=== PATIENT | male | born 1985 | race Caucasian/White ===

== ENCOUNTER 2017-09-03 22:24 | Emergency (ER) | payer BC, OTHER ==
[~2017-09-03] VITALS: Ht 182.9 cm; Wt 107.6 kg
[2017-09-03 22:40] VITALS: TEMP 37.1; Ht 182.9 cm; Wt 107.6 kg
--- NOTE | 2017-09-03 22:56 | EMERGENCY ROOM VISIT NOTE ---
History First contact with patient: 22:46 Chief Complaint: LACERATION/CUT (NON-SUTURE) Stated Complaint: LEFT PINKY CUT TO THE BONE Nursing Triage Summary: pt states he cut his right 5th finger at a concert tonight. states "i thought it was dislocated so i grabbed it and like put it back in." cut noted to middle of right hand, 5th finger, swelling and deformity noted as well. bleeding controlled with 4x4 gauze. pt alert and oriented x4. History of Present Illness The patient is a 32 year old male who presents to the Emergency Room with complaints of a laceration to the right fifth finger. The patient reports that he was at a concert and in a mosh pit and his pinky was bent backward, causing a laceration. He states that the bone was sticking out of the skin. He states that he thought it was dislocated and pulled on the finger. He rates his current discomfort a 2/10. He states his tetanus status is up-to-date. He denies any numbness or weakness. Review of Systems A 6 point review of systems was reviewed with the patient with pertinent positives and negatives as per history of present illness. All else were negative. Social History Smoking Status: Never Smoker Current/Historical Medications Scheduled Cephalexin Monohydrate (Keflex), 500 MG PO QID Physical Exam Vital Signs Date Time Temp Pulse Resp B/P (MAP) Pulse Ox O2 Delivery O2 Flow Rate FiO2 09/04/17 00:40 94 18 162/89 99 09/03/17 22:40 37.1 117 16 155/116 96 Room Air Physical Exam VITALS: Vitals are noted on the nurse's note and reviewed by myself. Vital signs stable. GENERAL: This is a 32-year-old male, in no acute distress, nondiaphoretic, well- developed well-nourished. MUSCULOSKELETAL: There is obvious deformity of the right fifth finger. There is a laceration over the palmar aspect of the PIP. There is no active bleeding. Distal sensation intact. Decreased range of motion of the finger. NEURO: Patient was alert and oriented to person place and time. Medical Decision & Procedures ER Provider Diagnostic Interpretation: RIGHT FIFTH FINGER: Dorsal dislocation at the PIP joint. RIGHT FIFTH FINGER (POST-REDUCTION): Interval reduction of the joint dislocation. No fractures. Medications Administered Medications (Trade) Dose Ordered Sig/Ana Route Start Time Stop Time Status Last Admin Dose Admin Lidocaine HCl (Buffered Lidocaine 1% Inj) 20 ml ONE ONCE INFIL 09/03/17 23:00 09/03/17 23:01 DC 09/03/17 23:15 20 ML Bupivacaine HCl (Marcaine 0.5% MPF Inj) 30 ml NOW ONCE INFIL 09/03/17 23:00 09/03/17 23:01 DC 09/03/17 23:15 30 ML Cefazolin Sodium (Cefazolin 1000mg Iv Push) 1,000 mg STK-MED ONCE IV 09/03/17 23:46 09/03/17 23:47 DC 09/03/17 23:47 1,000 MG Procedure Verbal consent was obtained to perform the procedure. Using sterile technique the finger was cleansed with Betadine. 6 ml of a 2:1 solution of 1% buffered lidocaine and bupivacaine was used to perform a digital block to anesthetize the patient. The area was sterilely draped. Once the patient was anesthetized , the wound was copiously irrigated under pressure with sterile saline. Traction was applied to the distal phalanx and the dislocation was reduced. The wound was explored and there were no deep structures injured. The laceration was copiously irrigated with sterile saline. The laceration was repaired using 5 simple interrupted 4-0 nylon sutures. The patient tolerated the procedure well. Hemostasis was achieved. The area was cleaned with sterile saline and dressed with bacitracin ointment and bandage. Medical Decision Differential diagnosis includes open fracture, open dislocation, among others. The patient was evaluate as above. He presents with an injury to the right fifth finger. X-ray shows a dorsal dislocation of the finger. Reduction and laceration repair were performed as noted above. Patient was given 1 g Ancef IV. Orthopedics was consulted. Dr. Maguire will see the patient tomorrow in the office. Patient was placed on Keflex. He was placed in a metal finger splint. He verbalized understanding of my assessment and treatment plan and was discharged home in good condition. Medication Reconcilliation Current Medication List: was personally reviewed by me Blood Pressure Screening Patient's blood pressure: Elevated blood pressure Blood pressure disposition: Elevated BP felt to be situational Impression Primary Impression: Open dislocation of finger Departure Information Dispostion Home / Self-Care Condition GOOD Prescriptions Cephalexin Monohydrate (Keflex) 500 Mg Cap 500 MG PO QID for 7 Days, #28 CAP Prov: Bev Watson ., COLBY 09/04/17 Referrals Gianfranco Maguire MD Patient Instructions My [facility] Additional Instructions You were prescribed Keflex to be taken as prescribed. This is an antibiotic. All antibiotics have the potential to cause diarrhea. Stop this medication and contact a medical provider if you were to develop any significant adverse side effects including: wheezing, shortness of breath, passing out, vomiting, or a diffuse rash. Always take antibiotics as directed and COMPLETE the ENTIRE course regardless of the improvement of your symptoms. For pain control, you can use the following [id number] medicines (if >12 yo): - Regular strength (325mg/tab) Tylenol (acetaminophen) 2 tabs every 4-6 hours as needed. Do not exceed 12 tablets in a 24 hour period. Avoid taking more than 4 grams (4000 mg) of Tylenol per day. This includes any other sources of acetaminophen you may take on a regular basis. - Regular strength (200 mg/tab) Advil (ibuprofen) 1-2 tabs every 4-6 hours as needed. Do not exceed a dose of 3[address] mg per [address] Dr. Maguire's office tomorrow morning to schedule a follow up appointment. Leave the splint in place until follow up with orthopedics. Problem Qualifiers Primary Impression: Open dislocation of finger Encounter type: initial encounter Qualified Codes: S63.259A - Unspecified dislocation of unspecified finger, initial encounter; S61.209A - Unspecified open wound of unspecified finger without damage to nail, initial encounter
[2017-09-03] MEDS ORDERED: XYLOCAINE 1%/SOD BICARB 20 ML VIAL INFIL ONE (23:00)
[2017-09-03] MEDS ORDERED: BUPIVACAINE 0.5 % 5 MG/1 ML MPF 30ML VIAL INFIL ONE (23:00)
[2017-09-03] MEDS ORDERED: CEFAZOLIN SOD 1000MG/55 ML D5W IV STA (23:31)
[2017-09-03] MEDS ORDERED: CEFAZOLIN SOD 1000MG/5 ML IV PUSH IV ONE (23:46)
[2017-09-04] MEDS ORDERED: CEPH500C PO (00:36)
[2017-09-04 00:40] VITALS: BP 162/89; PULSE 94; O2SAT 99
--- NOTE | 2017-09-04 06:31 | DIAGNOSTIC IMAGING REPORT ---
R FINGER(S) MIN 2 VIEWS ROUTINE HISTORY: 32 years-old Male right fifth finger injury acute right fifth finger pain status post trauma COMPARISON: None available TECHNIQUE: 3 views of the right fourth finger FINDINGS: There is complete dislocation of the fifth PIP joint which is dislocated 7 mm dorsally with 7 mm apposition. Moderate associated soft tissue swelling. No fracture identified. No opaque foreign body. IMPRESSION: Complete dorsal dislocation of the fifth PIP joint with apposition and soft tissue swelling. No fracture. The above report was generated using voice recognition software. It may contain grammatical, syntax or spelling errors. Electronically signed by: Angelo Dumont M.D. 09/04/2017 6:29 AM Dictated Date/Time: 09/04/2017 6:27 AM
--- NOTE | 2017-09-04 06:45 | DIAGNOSTIC IMAGING REPORT ---
R FINGER(S) MIN 2 VIEWS ROUTINE CLINICAL HISTORY: right fifth finger dislocation, post-reduction COMPARISON: 09/03/2017 11:18 PM DISCUSSION: Anatomic alignment status post closed reduction. Mild generalized soft tissue edema. No well-defined evidence for fracture. IMPRESSION: Anatomic alignment status post closed reduction. The above report was generated using voice recognition software. It may contain grammatical, syntax or spelling errors. Electronically signed by: George Valdez M.D. 09/04/2017 6:43 AM Dictated Date/Time: 09/04/2017 6:43 AM
== END 2017-09-04 00:40 | disposition home or self-care (01) ==
LOC: C.EDB 22:26 → C.EDC 09-04 00:40
DX: S63.256A Unspecified dislocation of right little finger, initial encounter (principal); X58.XXXA Exposure to other specified factors, initial encounter